=== PATIENT | female | born 1980 | race American Indian/Alaskan Native ===

== ENCOUNTER 2017-12-07 16:03 | Outpatient (CLI) | payer MEDICAID ==
[2017-12-07 18:50] LABS: Bacteria,Urine 1+ /HPF (Negative); Bilirubin,Urine NEG (Negative); Blood,Urine NEG (Negative); Color,Urine Yellow (Yellow); Protein,Urine <15 mg/dL mg/dL (Negative); Urobilinogen,Urine < 2.0 mg/dL (<2.0)
[2017-12-07] MEDS ORDERED: LACTATED RINGERS 500 ML IV ONE (18:54)
[2017-12-07] MEDS ORDERED: NORMOSOL-R PH 7.4 1,000 ML IV ONE ×2 (19:20→19:53)
[2017-12-07 19:54] LABS: Hemoglobin 10.5 gm/dl (10.1-14.3); Mean Corpuscular HGB Conc 32 % (30-34); Mean Corpuscular Hemoglobin 29 pg (28-32); Mean Corpuscular Volume 93 fl (79-97); Platelet Count 233 K/mm3 (140-440); Red Blood Count 3.57 M/mm3 (3.65-5.03); Red Cell Distribution Width 16.9 % (13.2-15.2)
[2017-12-07] MEDS ORDERED: PERCOCET 5/325 PO ONE (20:01)
[2017-12-07 20:43] LABS: Alanine Aminotransferase 12 units/L (7-56)
[2017-12-07 20:55] LABS: Uric Acid 4.4 mg/dL (3.5-7.6)
[2017-12-07 21:56] VITALS: BP 111/62
== END 2017-12-07 22:30 | disposition home or self-care (01) ==
LOC: TRG 16:03
PROVIDERS: ATTEND Obstetrics & Gynecology
DX: O09.523 Supervision of elderly multigravida, third trimester (principal); O47.03 False labor before 37 completed weeks of gestation, third trimester; Z3A.34 34 weeks gestation of pregnancy
CPT/HCPCS: 36415; 81001; 82565; 83615; 84450; 84460; 84550; 85027

== ENCOUNTER 2017-12-23 09:43 | Outpatient (CLI) | payer MEDICAID ==
[2017-12-23 10:02] VITALS: BP 125/78
[2017-12-23] MEDS ORDERED: LACTATED RINGERS 500 ML IV ONE (10:35)
[2017-12-23] MEDS ORDERED: LACTATED RINGERS 1,000 ML IV SCH (11:00)
[2017-12-23 11:36] LABS: Bilirubin,Urine NEG (Negative); Blood,Urine NEG (Negative); Color,Urine Yellow (Yellow); Mucus,Urine FEW /HPF; Urobilinogen,Urine < 2.0 mg/dL (<2.0)
[2017-12-23 12:40] LABS: Basophils % (Auto) 0.3 % (0.0-1.8); Eosinophils # (Auto) 0.1 K/mm3 (0.0-0.4); Eosinophils % (Auto) 0.8 % (0.0-4.3); Hematocrit 31.6 % (30.3-42.9); Hemoglobin 10.4 gm/dl (10.1-14.3); Lymphocytes # (Auto) 1.4 K/mm3 (1.2-5.4); Lymphocytes % (Auto) 15.3 % (13.4-35.0); Mean Corpuscular HGB Conc 33 % (30-34); Mean Corpuscular Hemoglobin 30 pg (28-32); Mean Corpuscular Volume 91 fl (79-97); Monocytes # (Auto) 1.1 K/mm3 (0.0-0.8); Monocytes % (Auto) 12.1 % (0.0-7.3); Platelet Count 222 K/mm3 (140-440); Red Blood Count 3.47 M/mm3 (3.65-5.03)
[2017-12-23] MEDS ORDERED: VISTARIL PO ONE (14:14)
== END 2017-12-23 14:36 | disposition home or self-care (01) ==
LOC: TRG 09:43
PROVIDERS: ATTEND Obstetrics & Gynecology
DX: O09.523 Supervision of elderly multigravida, third trimester (principal); O47.03 False labor before 37 completed weeks of gestation, third trimester; Z3A.36 36 weeks gestation of pregnancy
CPT/HCPCS: 36415; 59025; 81001; 85025; 86592; 86850; 86900; 86901; 96360; 96361; J7120; Q0177